=== PATIENT | male | born 2000 | race Caucasian/White ===

== ENCOUNTER 2020-02-25 11:03 | Emergency (ER) | payer BC ==
[2020-02-25 11:28] VITALS: BP 131/93; PULSE 63; RESP 18; TEMP 98.8
--- NOTE | 2020-02-25 11:40 | ED ---
Recheck HPI - General Chief Complaint: Recheck/Abnormal Lab/Rx Stated Complaint: out of insulin Time Seen by Provider: 02/25/20 11:30 Source: patient, RN notes reviewed, old records reviewed Mode of arrival: ambulatory Limitations: no limitations - History of Present Illness Initial Comments: Patient is a 19-year-old male presents the ER today for evaluation for chief complaint of being out of his insulin. Patient reportedly wears a continuous glucose monitor and reports that his insulin pump was reportedly malfunctioning last night. He has not had insulin since night. Patient reports that his glucometer read high. Patient has not had any insulin pens to dose insulin for him at this time. Patient states he has no shortness of breath no dysuria or hematuria or abdominal pain. He denies fatigue. He reports he's never had a history of DKA. Denies nausea or vomiting. Patient states that he called the pharmacy and they had no prescriptions for insulin pens for him. Patient states that he needs a prescription for insulin pens to bridge him until he can get his new insulin pump on Wednesday. - Related Data Home Medications Medication Instructions Recorded Confirmed Ascorbic Acid [Vitamin C] 500 mg PO DAILY 09/02/15 09/02/15 Melatonin 1 mg PO HS PRN 09/02/15 09/02/15 Zinc 50 mg PO DAILY 09/02/15 09/02/15 Previous Rx's Medication Instructions Recorded Insulin Glargine,Hum.rec.anlog 32 unit SQ HS #1 pen 02/25/20 [Lantus Solostar] Insulin NPH Human Isophane 10 units SQ ACHS #2 pen 02/25/20 [Novolin N Flexpen] Allergies Allergy/AdvReac Type Severity Reaction Status Date / Time No Known Allergies Allergy Verified 09/02/15 15:12 Review of Systems ROS Statement: Those systems with pertinent positive or pertinent negative responses have been documented in the HPI. ROS Other: All systems not noted in ROS Statement are negative. Past Medical History Past Medical History: Diabetes Mellitus History of Any Multi-Drug Resistant Organisms: None Reported Past Surgical History: No Surgical Hx Reported Past Psychological History: No Psychological Hx Reported Smoking Status: Vaper Past Alcohol Use History: Occasional Past Drug Use History: None Reported General Exam - General Exam Comments Initial Comments: 19-year-old male. Alert and oriented 3. No acute distress. Limitations: no limitations General appearance: alert, in no apparent distress Head exam: Present: atraumatic, normocephalic, normal inspection Eye exam: Present: normal appearance, PERRL, EOMI. Absent: scleral icterus, conjunctival injection, periorbital swelling ENT exam: Present: normal exam, mucous membranes moist Neck exam: Present: normal inspection. Absent: tenderness, meningismus, lymphadenopathy Respiratory exam: Present: normal lung sounds bilaterally. Absent: respiratory distress, wheezes, rales, rhonchi, stridor Cardiovascular Exam: Present: regular rate, normal rhythm, normal heart sounds. Absent: systolic murmur, diastolic murmur, rubs, gallop, clicks GI/Abdominal exam: Present: soft, normal bowel sounds. Absent: distended, tenderness, guarding, rebound, rigid Extremities exam: Present: normal inspection, full ROM, normal capillary refill. Absent: tenderness, pedal edema, joint swelling, calf tenderness Back exam: Present: normal inspection Neurological exam: Present: alert, oriented X3, CN II-XII intact Psychiatric exam: Present: normal affect, normal mood Skin exam: Present: warm, dry, intact, normal color. Absent: rash Course Vital Signs 02/25/20 11:26 Temperature 98.8 F Pulse Rate 63 Respiratory 18 Rate Blood Pressure 131/93 O2 Sat by Pulse 99 Oximetry Medical Decision Making - Medical Decision Making 19-year-old male type I diabetic presents emergency department today stating that his blood sugars high as he has not had his insulin for his pump for the past day. Patient states pump reportedly is malfunctioning. Patient has had no insulin pens to use so he came to ED. Patient has a continuous glucose monitor was reportedly is reading high at this time greater than 400. Patient's blood sugar here is 426. Was given 10 units of subcu insulin. No signs of dehydration. Otherwise appears clinically well. States only here for refill. Patient be given NovoLog flex pen and Lantus pen. Advised Patient to follow-up with her his PCP and job service specialist regards to his malfunctioning insulin pump. Patient is agreeable to treatment plan will comply. Return parameters were discussed. - Lab Data Lab Results 02/25/20 Range/Units 11:41 POC Glucose (mg/dL) 426 H (75-99) mg/dL POC Glu Porter Marina ID Matt Lei Disposition Clinical Impression: Hyperglycemia, Medication refill Disposition: HOME SELF-CARE Condition: Good Instructions (If sedation given, give patient instructions): Insulin Scale A (MPH) Additional Instructions: Adjust per sliding scale. Dosing Lantus at night. Patient should follow-up with PCP on Wednesday in regards to your insulin pump. Prescriptions: Insulin Glargine,Hum.rec.anlog [Lantus Solostar] 32 unit SQ HS #1 pen Insulin NPH Human Isophane [Novolin N Flexpen] 10 units SQ ACHS #2 pen Is patient prescribed a controlled substance at d/c from ED?: No Referrals: None,Stated [Primary Care Provider] - 1-2 days Time of Disposition: 12:09
[2020-02-25] MEDS ORDERED: INSULIN REGULAR 100 UNIT/ML VIAL SQ ONE (11:42)
[2020-02-25 11:43] LABS: Glucose,Whole Blood 426 mg/dL (75-99)
== END 2020-02-25 12:13 | disposition home or self-care (01) ==
LOC: EC 11:03
DX: E10.65 Type 1 diabetes mellitus with hyperglycemia (principal); F17.290 Nicotine dependence, other tobacco product, uncomplicated; Z76.0 Encounter for issue of repeat prescription
CPT/HCPCS: 36415; 99284

== ENCOUNTER 2020-03-26 18:18 | Emergency (ER) | payer BC ==
[2020-03-26 18:28] VITALS: BP 121/77; PULSE 83; RESP 18; TEMP 98.9
--- NOTE | 2020-03-26 19:00 | XR ---
EXAMINATION TYPE: XR chest 2V DATE OF EXAM: 03/26/2020 COMPARISON: 09/02/2015 HISTORY: Pain TECHNIQUE: FINDINGS: Heart and mediastinum are normal. Lungs are clear. Diaphragm is normal. Bony thorax appears normal. IMPRESSION: Normal chest.
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
--- NOTE | 2020-03-26 19:01 | XR ---
EXAMINATION TYPE: XR ribs LT DATE OF EXAM: 03/26/2020 COMPARISON: NONE HISTORY: Rib pain TECHNIQUE: 4 views FINDINGS: There is no pleural effusion or pneumothorax. Left lung is clear of infiltrate. There is no ndisplaced fracture posterior lateral left sixth rib. IMPRESSION: Acute left rib fracture.
[2020-03-26] MEDS ORDERED: ACET/COD 300 MG/30 MG STARTER PACK 6 TAB BTL PO STA (19:21)
== END 2020-03-26 19:36 | disposition home or self-care (01) ==
LOC: EC 18:18
DX: S22.32XA Fracture of one rib, left side, initial encounter for closed fracture (principal); F17.290 Nicotine dependence, other tobacco product, uncomplicated; Y04.0XXA Assault by unarmed brawl or fight, initial encounter
CPT/HCPCS: 71046; 99284